=== PATIENT | female | born 1995 | race Caucasian/White ===

== ENCOUNTER 2020-11-21 12:38 | Inpatient (IN) ==
[2020-11-21 13:26] LABS: Bacteria,Urine Occasional /HPF (Few); Bilirubin,Urine Negative (Negative); Blood, Urine Negative (Negative); Glucose,Urine (UA) Negative (Negative); Hyaline Casts,Urine 1 /LPF (0-3); Ketones,Urine Negative (Negative); Nitrite,Urine Negative (Negative); Protein,Urine Negative; Squamous Epithelial Cell,Urine Occasional /HPF (0-10); Urine Appearance CLEAR (Clear); Urine Color Yellow (Yellow); Urine Specific Gravity 1.006 (1.001-1.035); Urine Urobilinogen < 2.0 EU/DL (0.2-1.0)
[2020-11-21] MEDS ORDERED: FAMOTIDINE 20 MG/2 ML VIAL IV ONE (21:34)
[2020-11-21] MEDS ORDERED: ALUMINUM/MAGNES/SIMETH MAX STR 30 ML UDCUP PO PRN (21:37)
[2020-11-22] MEDS ORDERED: ONDANSETRON 4 MG/2 ML VIAL IV PRN ×2 (06:40→16:09)
[2020-11-22] MEDS ORDERED: BUTORPHANOL 2 MG/ML VIAL IV ONE (06:46)
[2020-11-22] MEDS ORDERED: LACTATED RINGERS 1,000 ML IV SCH ×2 (07:00→08:00)
[2020-11-22] MEDS ORDERED: OXYTOCIN/LR 20 UNIT/1,000 ML BAG IV SCH (07:00)
[2020-11-22 07:19] LABS: Basophils % 0.5 % (0.0-0.8); Eosinophils # 0.1 10*3/uL (0.0-0.87); Eosinophils % 1.1 % (0.00-10.9); Hematocrit 27.1 VOL% (35.7-47.0); Hemoglobin 8.7 GM/DL (12.0-16.0); Immature Granulocytes % 0.6 %; Immature Granulocytes Absolute 0.05 #; Lymphocytes # 2.5 10*3/uL (1.4-4.0); Lymphocytes % 29.4 % (21.3-54.2); Mean Corpuscular HGB Conc 32.1 GM/DL (32-36); Mean Corpuscular Volume 82.6 FL (87-102); Mean Platelet Volume 9.4 FL (9.6-12.0); Neutrophils % 60.4 % (38.7-73.9); Platelet Count 258 T/CUMM (130-400); Red Blood Count 3.28 MC/CUMM (3.8-5.5); Red Cell Distribution Width 13.3 % (9.3-17.3); White Blood Count 8.5 T/CUMM (4-12)
[2020-11-22] MEDS ORDERED: FAMOTIDINE 20 MG/2 ML VIAL IV ONE (07:33)
[2020-11-22] MEDS ORDERED: ONDANSETRON 4 MG/2 ML VIAL IV ONE (07:33)
[2020-11-22] MEDS ORDERED: ePHEDrine 50 MG/ML VIAL IV PRN (07:33)
[2020-11-22] MEDS ORDERED: diphenhydrAMINE 50 MG/1 ML VIAL IV PRN ×2 (07:33)
[2020-11-22] MEDS ORDERED: PROMETHAZINE 25 MG/1 ML VIAL IM ONE (07:33)
[2020-11-22] MEDS ORDERED: LACTATED RINGERS 1,000 ML IV ONE (07:33)
[2020-11-22] MEDS ORDERED: NALOXONE 0.4 MG/ML VIAL IV PRN (07:33)
[2020-11-22] MEDS ORDERED: CITRIC ACID/SODIUM CITRATE 30 ML UDCUP PO ONE (07:33)
[2020-11-22] MEDS ORDERED: hydrOXYzine HCL 25 MG/1 ML VIAL IM PRN (07:33)
[2020-11-22 07:45] LABS: Atypical Lymphocytes Few; Band Neutrophils 1 % (0-10); Eosinophils 1 % (0-10); Lymphocytes 33 % (20-55); Myelocytes 1 %; Segmented Neutrophils 59 % (50-85); Total Cells Counted 100
[2020-11-22 07:46] LABS: Hypochromasia 1+; Microcytosis 1+; Ovalocytes Slight; Platelet Estimate Normal; Polychromasia Slight
[2020-11-22 07:54] LABS: Alanine Aminotransferase < 9 U/L (13-56); Albumin 2.7 G/DL (3.4-5.0); Alkaline Phosphatase 120 U/L (45-117); Aspartate Amino Transferase 11 U/L (0-37); Bilirubin,Total < 0.39 MG/DL (0.20-1.00); Blood Urea Nitrogen 7 MG/DL (7-18); Carbon Dioxide 26 MMOL/L (21-32); Estimated Glom Filtration Rate 139 ML/MIN; Glucose 71 MG/DL (74-106); Osmolality,Calculated 270.7 MOS/KG (273-304); Potassium 4.2 MMOL/L (3.5-5.1); Sodium 138 MMOL/L (136-145)
[2020-11-22] MEDS ORDERED: fentaNYL 2 MCG/ROPIV 0.2% EPID 100 ML EPIDURAL SCH (08:00)
[2020-11-22 10:57] LABS: Bilirubin,Urine Negative (Negative); Blood, Urine Negative (Negative); Glucose,Urine (UA) Negative (Negative); Ketones,Urine Negative (Negative); Mucus,Urine Occasional /LPF (Occasional); Nitrite,Urine Negative (Negative); Protein,Urine Negative; RBC,Urine 1 /HPF (0-4); Squamous Epithelial Cell,Urine Occasional /HPF (0-10); Urine Appearance CLEAR (Clear); Urine Color Straw (Yellow); Urine Specific Gravity 1.011 (1.001-1.035); Urine Urobilinogen < 2.0 EU/DL (0.2-1.0)
[2020-11-22] MEDS ORDERED: OXYTOCIN/LR 30 UNIT/1,000 ML BAG IV ONE (16:00)
[2020-11-22] MEDS ORDERED: METHYLERGONOVINE 0.2 MG/1 ML AMP IM ONE (16:00)
[2020-11-22] MEDS ORDERED: DIPH/TET/ACEL PERT BOOSTER VACCINE 0.5 ML VIAL IM ONE (16:09)
[2020-11-22] MEDS ORDERED: ACETAMINOPHEN 325 MG TABLET PO PRN (16:09)
[2020-11-22] MEDS ORDERED: OXYTOCIN/LR 20 UNIT/1,000 ML BAG IV ONE (16:09)
[2020-11-22] MEDS ORDERED: HYDROCORTISONE 2.5% RECTAL CREAM 30 GM TUBE TOP PRN (16:09)
[2020-11-22] MEDS ORDERED: RHO(D) IMMUNE GLOBULIN 300 MCG SYRINGE IM ONE (16:09)
[2020-11-22] MEDS ORDERED: MEASLES/MUMPS/RUBELLA VACCINE 0.5 ML VIAL SUBCUT ONE (16:09)
[2020-11-22] MEDS ORDERED: WITCH HAZEL PADS 100/JAR TOP PRN (16:09)
[2020-11-22] MEDS ORDERED: BENZOCAINE 20%/MENTHOL 0.5% SPRAY 56 GM CAN TOP PRN (16:09)
[2020-11-22] MEDS ORDERED: LANOLIN 50% CREAM 0.3 OZ TUBE TOP PRN (16:09)
[2020-11-22] MEDS ORDERED: BISACODYL 10 MG SUPP RECTAL PRN (16:09)
[2020-11-22 16:11] LABS: Cord Venous Blood HCO3 24.5 MMOL/L; Cord Venous Blood PCO2 39.8 MMHG; Cord Venous Blood PO2 38.3 MMHG
[2020-11-22] MEDS: oxyCODONE/ACETAMINOPHEN 5-325 MG TABLET PO PRN ×2 (19:14→23:54)
[2020-11-22] MEDS ORDERED: ONDANSETRON 4 MG TABLET PO PRN (19:17)
[2020-11-22 19:38] LABS: Basophils % 0.3 % (0.0-0.8); Eosinophils # 0.1 10*3/uL (0.0-0.87); Eosinophils % 0.4 % (0.00-10.9); Hematocrit 28.2 VOL% (35.7-47.0); Hemoglobin 8.8 GM/DL (12.0-16.0); Immature Granulocytes % 0.4 %; Immature Granulocytes Absolute 0.05 #; Lymphocytes # 2.3 10*3/uL (1.4-4.0); Lymphocytes % 17.4 % (21.3-54.2); Mean Corpuscular HGB Conc 31.2 GM/DL (32-36); Mean Corpuscular Volume 84.9 FL (87-102); Mean Platelet Volume 9.2 FL (9.6-12.0); Monocytes % 5.2 % (1.7-12.7); Neutrophils % 76.3 % (38.7-73.9); Platelet Count 263 T/CUMM (130-400); Red Blood Count 3.32 MC/CUMM (3.8-5.5); Red Cell Distribution Width 13.3 % (9.3-17.3); White Blood Count 13.3 T/CUMM (4-12)
[2020-11-22] MEDS: DOCUSATE SODIUM 100 MG CAPSULE PO SCH (21:25)
[2020-11-23] MEDS: IBUPROFEN 800 MG TABLET PO PRN ×3 (01:27→18:39)
[2020-11-23 05:20] LABS: Basophils # 0.1 10*3/uL (0.0-0.2); Basophils % 0.5 % (0.0-0.8); Eosinophils # 0.1 10*3/uL (0.0-0.87); Eosinophils % 1.1 % (0.00-10.9); Hemoglobin 7.9 GM/DL (12.0-16.0); Immature Granulocytes % 0.4 %; Immature Granulocytes Absolute 0.04 #; Lymphocytes # 2.8 10*3/uL (1.4-4.0); Lymphocytes % 28.4 % (21.3-54.2); Mean Corpuscular HGB Conc 31.6 GM/DL (32-36); Mean Corpuscular Volume 82.8 FL (87-102); Mean Platelet Volume 9.3 FL (9.6-12.0); Monocytes % 6.3 % (1.7-12.7); Neutrophils % 63.3 % (38.7-73.9); Platelet Count 233 T/CUMM (130-400); Red Blood Count 3.02 MC/CUMM (3.8-5.5); Red Cell Distribution Width 13.2 % (9.3-17.3); White Blood Count 9.8 T/CUMM (4-12)
[2020-11-23] MEDS: oxyCODONE/ACETAMINOPHEN 5-325 MG TABLET PO PRN ×3 (06:03→18:38)
[2020-11-23] MEDS: DOCUSATE SODIUM 100 MG CAPSULE PO SCH ×2 (08:31→21:22)
[2020-11-23] MEDS: FERROUS SULFATE 325 MG TABLET PO SCH ×3 (08:31→21:22)
[2020-11-24] MEDS: oxyCODONE/ACETAMINOPHEN 5-325 MG TABLET PO PRN ×2 (00:41→06:53)
[2020-11-24 08:31] VITALS: BP 105/60
[2020-11-24] MEDS: DOCUSATE SODIUM 100 MG CAPSULE PO SCH (09:39)
[2020-11-24] MEDS: FERROUS SULFATE 325 MG TABLET PO SCH (09:39)
== END 2020-11-24 13:14 | disposition home or self-care (01) | DRG 807 ==
LOC: N.LDOUT 12:38 → N.LD 12:40 → N.OB 11-22 18:07
PROVIDERS: ADMIT Obstetrics & Gynecology; ATTEND Obstetrics & Gynecology

== ENCOUNTER 2021-10-15 01:43 | Inpatient (IN) ==
[2021-10-15 02:18] LABS: Bacteria,Urine Occasional /HPF (Few); Mucus,Urine Few /LPF (Occasional); RBC,Urine 1 /HPF (0-4); Squamous Epithelial Cell,Urine Occasional /HPF (0-10)
[2021-10-15 02:19] LABS: Bilirubin,Urine Negative (Negative); Blood, Urine Trace mg/dL (Negative); Glucose,Urine (UA) Negative (Negative); Ketones,Urine Negative (Negative); Nitrite,Urine Negative (Negative); Protein,Urine Negative (Negative); Urine Appearance Clear (Clear); Urine Color Yellow (Yellow); Urine Urobilinogen 0.2 eU/dL (<2.0)
[2021-10-15] MEDS ORDERED: LACTATED RINGERS 1,000 ML IV ONE (02:37)
[2021-10-15] MEDS ORDERED: ACETAMINOPHEN/CODEINE 300-30 MG TABLET PO ONE (02:37)
[2021-10-15] MEDS ORDERED: TERBUTALINE 1 MG/1 ML VIAL SUBCUT ONE (02:40)
[2021-10-15] MEDS ORDERED: BETAMETH SODIUM PHOS/ACETATE 30 MG/5 ML VIAL IM ONE ×2 (02:40→15:00)
[2021-10-15] MEDS: LACTATED RINGERS 1,000 ML IV SCH ×2 (04:21→13:37)
[2021-10-15] MEDS ORDERED: ONDANSETRON 4 MG/2 ML VIAL IV PRN (06:23)
[2021-10-15] MEDS ORDERED: MEPERIDINE 50 MG/1 ML VIAL IV PRN (06:23)
[2021-10-15 10:55] LABS: Basophils # 0.1 10*3/uL (0.0-0.2); Basophils % 0.5 % (0.0-0.8); Eosinophils # 0.1 10*3/uL (0.0-0.87); Eosinophils % 1.1 % (0.00-10.9); Hematocrit 31.4 VOL% (35.7-47.0); Immature Granulocytes % 0.5 %; Immature Granulocytes Absolute 0.06 #; Lymphocytes % 25.7 % (21.3-54.2); Mean Corpuscular HGB Conc 31.8 GM/DL (32-36); Mean Corpuscular Volume 87.7 FL (87-102); Mean Platelet Volume 10.4 FL (9.6-12.0); Monocytes # 1.1 10*3/uL (0.11-0.8); Monocytes % 9.4 % (1.7-12.7); Neutrophils % 62.8 % (38.7-73.9); Platelet Count 292 T/CUMM (130-400); Red Blood Count 3.58 MC/CUMM (3.8-5.5); Red Cell Distribution Width 15.2 % (9.3-17.3); White Blood Count 11.8 T/CUMM (4-12)
[2021-10-15] MEDS: ALUMINUM/MAGNES/SIMETH MAX STR 30 ML UDCUP PO PRN ×2 (14:01→18:57)
[2021-10-15] MEDS: FAMOTIDINE 20 MG/2 ML VIAL IV PRN (21:43)
[2021-10-16] MEDS ORDERED: METHYLERGONOVINE 0.2 MG/1 ML AMP IM PRN (09:26)
[2021-10-16] MEDS ORDERED: ONDANSETRON 4 MG/2 ML VIAL IV PRN ×2 (09:26→17:59)
[2021-10-16] MEDS ORDERED: TRANEXAMIC ACID 1,000 MG in SODIUM CHLORIDE 0.9% 100 ML IV PRN (09:26)
[2021-10-16] MEDS ORDERED: LACTATED RINGERS 250 ML IV ONE (09:26)
[2021-10-16] MEDS ORDERED: OXYTOCIN/LR 20 UNIT/1,000 ML BAG IV ONE ×2 (09:26→17:59)
[2021-10-16] MEDS ORDERED: CARBOPROST TROMETHAMINE 250 MCG/ML AMP IM PRN (09:26)
[2021-10-16] MEDS ORDERED: miSOPROStoL 200 MCG TABLET RECTAL PRN (09:26)
[2021-10-16] MEDS ORDERED: PROMETHAZINE 25 MG/1 ML VIAL IM ONE (09:35)
[2021-10-16] MEDS ORDERED: ePHEDrine 50 MG/ML VIAL IV PRN (09:35)
[2021-10-16] MEDS ORDERED: diphenhydrAMINE 50 MG/1 ML VIAL IV PRN ×2 (09:35)
[2021-10-16] MEDS ORDERED: NALOXONE 0.4 MG/ML VIAL IV PRN (09:35)
[2021-10-16] MEDS ORDERED: hydrOXYzine HCL 25 MG/1 ML VIAL IM PRN (09:35)
[2021-10-16] MEDS ORDERED: ONDANSETRON 4 MG/2 ML VIAL IV ONE (09:35)
[2021-10-16 09:52] LABS: Basophils % 0.1 % (0.0-0.8); Hematocrit 27.9 VOL% (35.7-47.0); Hemoglobin 8.9 GM/DL (12.0-16.0); Immature Granulocytes Absolute 0.14 #; Lymphocytes # 1.8 10*3/uL (1.4-4.0); Lymphocytes % 12.6 % (21.3-54.2); Mean Corpuscular HGB Conc 31.9 GM/DL (32-36); Mean Corpuscular Volume 87.7 FL (87-102); Mean Platelet Volume 9.9 FL (9.6-12.0); Monocytes # 1.1 10*3/uL (0.11-0.8); Monocytes % 7.8 % (1.7-12.7); Neutrophils % 78.5 % (38.7-73.9); Platelet Count 278 T/CUMM (130-400); Red Blood Count 3.18 MC/CUMM (3.8-5.5); Red Cell Distribution Width 15.1 % (9.3-17.3); White Blood Count 14.6 T/CUMM (4-12)
[2021-10-16] MEDS ORDERED: fentaNYL 2 MCG/ROPIV 0.2% EPID 100 ML EPIDURAL SCH (10:00)
[2021-10-16] MEDS ORDERED: CITRIC ACID/SODIUM CITRATE 30 ML UDCUP PO ONE (10:20)
[2021-10-16] MEDS: FAMOTIDINE 20 MG/2 ML VIAL IV PRN (10:30)
[2021-10-16] MEDS: LACTATED RINGERS 1,000 ML IV SCH ×2 (11:06→12:54)
[2021-10-16 12:19] LABS: Mucus,Urine Moderate /LPF (Occasional); RBC,Urine 1 /HPF (0-4); Squamous Epithelial Cell,Urine Occasional /HPF (0-10)
[2021-10-16 12:20] LABS: Bilirubin,Urine Negative (Negative); Blood, Urine Negative (Negative); Glucose,Urine (UA) 100 mg/dL (Negative); Ketones,Urine 40 mg/dL (Negative); Nitrite,Urine Negative (Negative); Protein,Urine Negative (Negative); Urine Appearance Clear (Clear); Urine Color Yellow (Yellow); Urine Specific Gravity 1.025 (1.001-1.035); Urine Urobilinogen 0.2 eU/dL (<2.0)
[2021-10-16] MEDS ORDERED: OXYTOCIN/LR 20 UNIT/1,000 ML BAG IV SCH (12:30)
[2021-10-16] MEDS ORDERED: SODIUM CHLORIDE 0.9% 1,000 ML IV SCH (16:00)
[2021-10-16] MEDS ORDERED: METHYLERGONOVINE 0.2 MG/1 ML AMP ONE (17:25)
[2021-10-16] MEDS ORDERED: SODIUM CHLORIDE 0.9% 0 ML IV ONE (17:25)
[2021-10-16] MEDS ORDERED: miSOPROStoL 200 MCG TABLET ONE (17:25)
[2021-10-16] MEDS ORDERED: TRANEXAMIC ACID 1,000 MG/10 ML VIAL ONE (17:25)
[2021-10-16] MEDS ORDERED: CARBOPROST TROMETHAMINE 250 MCG/ML AMP IM ONE (17:26)
[2021-10-16] MEDS ORDERED: OXYTOCIN/LR 30 UNIT/1,000 ML BAG IV ONE (17:38)
[2021-10-16 17:48] LABS: Cord Venous Blood HCO3 24.1 MMOL/L; Cord Venous Blood PCO2 38.8 MMHG; Cord Venous Blood PO2 41.7
[2021-10-16] MEDS ORDERED: WITCH HAZEL PADS 100/JAR TOP PRN (17:59)
[2021-10-16] MEDS ORDERED: MEASLES/MUMPS/RUBELLA VACCINE 0.5 ML VIAL SUBCUT ONE (17:59)
[2021-10-16] MEDS ORDERED: RHO(D) IMMUNE GLOBULIN 300 MCG SYRINGE IM ONE (17:59)
[2021-10-16] MEDS ORDERED: LANOLIN 50% CREAM 0.3 OZ TUBE TOP PRN (17:59)
[2021-10-16] MEDS ORDERED: DIPH/TET/ACEL PERT BOOSTER VACCINE 0.5 ML VIAL IM ONE (17:59)
[2021-10-16] MEDS ORDERED: oxyCODONE/ACETAMINOPHEN 5-325 MG TABLET PO PRN (17:59)
[2021-10-16] MEDS ORDERED: BENZOCAINE 20%/MENTHOL 0.5% SPRAY 56 GM CAN TOP PRN (17:59)
[2021-10-16] MEDS ORDERED: HYDROCORTISONE 2.5% RECTAL CREAM 30 GM TUBE TOP PRN (17:59)
[2021-10-16] MEDS ORDERED: ACETAMINOPHEN 325 MG TABLET PO PRN (17:59)
[2021-10-16] MEDS ORDERED: BISACODYL 10 MG SUPP RECTAL PRN (17:59)
[2021-10-16 19:31] LABS: Basophils % 0.1 % (0.0-0.8); Hematocrit 26.7 VOL% (35.7-47.0); Hemoglobin 8.2 GM/DL (12.0-16.0); Immature Granulocytes Absolute 0.23 #; Lymphocytes # 2.5 10*3/uL (1.4-4.0); Lymphocytes % 10.3 % (21.3-54.2); Mean Corpuscular HGB Conc 30.7 GM/DL (32-36); Mean Corpuscular Volume 90.2 FL (87-102); Mean Platelet Volume 9.3 FL (9.6-12.0); Monocytes # 1.2 10*3/uL (0.11-0.8); Monocytes % 4.9 % (1.7-12.7); Neutrophils % 83.7 % (38.7-73.9); Platelet Count 238 T/CUMM (130-400); Red Blood Count 2.96 MC/CUMM (3.8-5.5); Red Cell Distribution Width 15.3 % (9.3-17.3); White Blood Count 23.7 T/CUMM (4-12)
[2021-10-16 20:08] LABS: Band Neutrophils 3 % (0-10); Lymphocytes 8 % (20-55); Platelet Estimate Normal; Total Cells Counted 100
[2021-10-16] MEDS: oxyCODONE/ACETAMINOPHEN 5-325 MG TABLET PO PRN (21:08)
[2021-10-17] MEDS: IBUPROFEN 800 MG TABLET PO PRN ×3 (00:41→19:58)
[2021-10-17 05:43] LABS: Basophils % 0.2 % (0.0-0.8); Eosinophils # 0.1 10*3/uL (0.0-0.87); Eosinophils % 0.4 % (0.00-10.9); Hematocrit 22.4 VOL% (35.7-47.0); Hemoglobin 7.2 GM/DL (12.0-16.0); Immature Granulocytes % 0.7 %; Immature Granulocytes Absolute 0.11 #; Lymphocytes # 2.7 10*3/uL (1.4-4.0); Lymphocytes % 16.9 % (21.3-54.2); Mean Corpuscular HGB Conc 32.1 GM/DL (32-36); Mean Corpuscular Volume 87.2 FL (87-102); Mean Platelet Volume 9.8 FL (9.6-12.0); Monocytes # 1.3 10*3/uL (0.11-0.8); Monocytes % 8.1 % (1.7-12.7); Neutrophils % 73.7 % (38.7-73.9); Platelet Count 253 T/CUMM (130-400); Red Blood Count 2.57 MC/CUMM (3.8-5.5); Red Cell Distribution Width 15.2 % (9.3-17.3)
[2021-10-17] MEDS ORDERED: SODIUM CHLORIDE 0.9% 1,000 ML IV PRN (06:32)
[2021-10-17] MEDS: DOCUSATE SODIUM 100 MG CAPSULE PO SCH ×3 (09:14→20:59)
[2021-10-17 12:55] LABS: Hemoglobin 9.6 GM/DL (12.0-16.0)
[2021-10-17] MEDS: oxyCODONE/ACETAMINOPHEN 5-325 MG TABLET PO PRN ×2 (13:41→19:48)
[2021-10-18] MEDS: IBUPROFEN 800 MG TABLET PO PRN (04:02)
[2021-10-18] MEDS: DOCUSATE SODIUM 100 MG CAPSULE PO SCH ×2 (07:45→09:33)
[2021-10-18] MEDS: oxyCODONE/ACETAMINOPHEN 5-325 MG TABLET PO PRN (07:46)
[2021-10-18 08:15] VITALS: BP 105/71
== END 2021-10-18 11:10 | disposition home or self-care (01) | DRG 806 ==
LOC: N.LDOUT 01:43 → N.LD 01:50 → N.OB 10-17 10:55
PROVIDERS: ADMIT Obstetrics & Gynecology; ATTEND Obstetrics & Gynecology